=== PATIENT | female | born 1965 | race Caucasian/White ===

== ENCOUNTER 2020-07-04 06:28 | Day surgery (SDC) | payer OTHER ==
[2020-07-04] MEDS ORDERED: Sodium Chloride 0.9% 1,000 ML IV SCH (07:00)
[2020-07-04] MEDS ORDERED: Propofol 200 MG/20 ML SDV ONE (07:29)
[2020-07-04] MEDS ORDERED: Midazolam 1 MG/ML 2 ML SDV ONE (07:29)
--- NOTE | 2020-07-04 10:50 | OR ---
DATE OF PROCEDURE: 07/04/2020 SURGEON: Otilio Sarmiento MD PROCEDURE: Colonoscopy. FINDINGS: Diverticulosis. COMPLICATIONS: None. MASTER TAX ADVISOR: None. ANESTHESIA: MAC. PREOPERATIVE DIAGNOSIS: Screening colonoscopy. POSTOPERATIVE DIAGNOSIS: Screening colonoscopy. RISKS: Risks, benefits, alternatives, and limitations including, but not limited to infection, bleeding, and perforation along with false positives and false negatives were explained to the patient who wished to proceed. PROCEDURE IN DETAIL: The patient was placed in left lateral decubitus position. Digital rectal exam was performed without abnormality. Scope was introduced and advanced atraumatically to the ileocecal valve. A photo was taken of this. Scope was brought back to the ascending, transverse, descending colon, and retroflexed. No evidence of old or new blood. No masses. Diverticulosis was described as very mild, mostly limited to sigmoid colon. No abnormalities on retroflexion. The prep was marginally acceptable with approximately 85% of the luminal surface could be seen due to retained solid and liquid stool. The patient tolerated the procedure well. Greater than 8 minutes was spent removing the scope. Otilio Sarmiento MD /[id number]
== END 2020-07-04 09:30 | disposition home or self-care (01) ==
LOC: JP.SDS 06:28
PROVIDERS: ATTEND Surgery
DX: Z12.11 Encounter for screening for malignant neoplasm of colon (principal); K57.30 Diverticulosis of large intestine without perforation or abscess without bleeding; Z86.010 Personal history of colon polyps; Z88.0 Allergy status to penicillin; Z88.1 Allergy status to other antibiotic agents; Z88.4 Allergy status to anesthetic agent; Z88.8 Allergy status to other drugs, medicaments and biological substances
CPT/HCPCS: 45378; J2250; J2704; J7030

== ENCOUNTER 2023-03-04 09:56 | Inpatient (IN) | payer OTHER ==
[2023-03-04] MEDS ORDERED: Acetaminophen 325 MG Tab PO PRN (10:36)
[2023-03-04] MEDS ORDERED: Polyethylene Glycol 3350 Powder 17 GM Packet PO PRN (10:36)
[2023-03-04] MEDS ORDERED: Ondansetron 4 MG/2 ML SDV IV PRN (10:36)
[2023-03-04] MEDS ORDERED: Sodium Chloride 0.9% 10 ML Syringe FLUSH PRN ×2 (10:36→13:15)
[2023-03-04 11:13] LABS: BASOPHILS ABSOLUTE AUTO 0.03 K/uL (0.00-0.10); BASOPHILS PERCENT AUTO 0.4 % (0.1-1.3); EOSINOPHILS PERCENT AUTO 1.2 % (0.0-5.4); HEMATOCRIT 36.9 % (34.3-46.0); HEMOGLOBIN 12.2 g/dL (11.2-15.5); IMMATURE GRAN ABSOLUTE AUTO 0.13 K/uL (0.00-0.23); IMMATURE GRAN PERCENT AUTO 1.6 % (0.0-0.7); LYMPHOCYTES ABSOLUTE AUTO 2.47 K/uL (0.8-3.3); LYMPHOCYTES PERCENT AUTO 30.4 % (11.4-47.7); MEAN CORPUSCULAR HEMOGLOBIN 31.2 pg (31.6-35.5); MEAN CORPUSCULAR HGB CONC 33.1 g/dL (31.6-35.5); MEAN CORPUSCULAR VOLUME 94.4 fL (81.4-99.0); MONOCYTES ABSOLUTE AUTO 0.65 K/uL (0.20-0.90); NEUTROPHILS ABSOLUTE AUTO 4.74 K/uL (1.0-7.6); NEUTROPHILS PERCENT AUTO 58.4 % (40.0-78.1); PLATELET COUNT,PLT 335 K/uL (130-375); RED BLOOD CELL COUNT 3.91 M/uL (3.77-5.24); WHITE BLOOD CELL COUNT,WBC 8.1 K/uL (3.2-11.0)
[2023-03-04 11:14] LABS: BASE EXCESS ARTERIAL 1.5 mm/L; BICARBONATE,ARTERIAL 24.6 mmol/L (22.0-26.0); CARBOXYHEMOGLOBIN 2.6 % (0.0-1.6); METHEMOGLOBIN 0.5 %; PCO2 ARTERIAL 35.2 mmHg (35.0-42.0); TOTAL HEMOGLOBIN 12.3 g/dL (12.0-16.0)
[2023-03-04] MEDS: Sodium Chloride 0.9% 1,000 ML IV SCH (11:15)
[2023-03-04] MEDS: Doxycycline 100 MG in Sodium Chloride 0.9% 100 ML IV SCH ×2 (11:32→22:34)
[2023-03-04 11:36] LABS: ALBUMIN 2.2 g/dL (3.4-5.0); ALKALINE PHOSPHATASE 124 U/L (46-116); ASPARTATE AMNIOTRANSFERASE,AST 22 U/L (15-37); BILIRUBIN TOTAL 0.6 mg/dL (0.2-1.0); BLOOD UREA NITROGEN,BUN 15 mg/dL (7-18); C-REACTIVE PROTEIN 22.23 mg/dL (0.0-0.3); CALCIUM 8.9 mg/dL (8.5-10.1); CARBON DIOXIDE,CO2 29 mmol/L (21-32); CHLORIDE,CL 95 mmol/L (100-108); CREATININE 0.9 mg/dL (0.6-1.0); EST CRCL DRUG DOSING (CG) 65.45 mL/min; ESTIMATED GFR 74 mL/min (>60); GLUCOSE RANDOM 88 mg/dL (74-106); MAGNESIUM 1.5 mg/dL (1.8-2.4); POTASSIUM,K 3.7 mmol/L (3.6-5.2); PROTEIN TOTAL,TP 7.1 g/dL (6.4-8.2); SODIUM,NA 131 mmol/L (140-148)
[2023-03-04 11:45] LABS: A/G RATIO 0.5 (1.2-2.2); ALANINE AMINOTRANSFERASE,ALT 14 U/L (12-78); ANION GAP 10.7 mmol/L (5.0-14.0)
[2023-03-04] MEDS ORDERED: Non-Formulary Medication 1 Each (Magnesium Oxide [Magnesium] 400 MG Capsule) PO SCH (13:00)
[2023-03-04] MEDS: Meropenem 1 GM in Sodium Chloride 0.9% 100 ML IV SCH ×2 (13:05→19:42)
[2023-03-04] MEDS: Enoxaparin 40 MG/0.4 ML Syringe SUBCUT SCH (13:09)
[2023-03-04] MEDS ORDERED: Sodium Chloride 0.9% 75 ML IV ONE (13:15)
[2023-03-04] MEDS ORDERED: Iopamidol 755 Mg/ML 100 ML Bottle IV SCH (13:15)
[2023-03-04] MEDS: Acetylcysteine 20% 200 MG/ML 4 ML Nebulizer Soln SDV NEB SCH ×2 (13:22→20:42)
[2023-03-04] MEDS: Albuterol 0.083% 2.5 MG/3 ML Neb Soln NEB PRN (13:22)
[2023-03-04] MEDS: methylPREDNISolone Sodium Succinate 40 MG/1 ML SDV IVPUSH SCH ×2 (14:41→22:32)
[2023-03-04] MEDS: Magnesium Oxide 400 MG Tab PO SCH ×2 (14:41→20:28)
[2023-03-04] MEDS: Magnesium Sulfate/Water 2 GM in Premix Bag 1 BAG IV SCH ×2 (14:41→20:22)
[2023-03-04] MEDS: Pregabalin 100 MG Cap PO SCH (20:28)
[2023-03-04] MEDS: DULoxetine 20 MG Cap PO SCH (20:28)
[2023-03-05] MEDS: Sodium Chloride 0.9% 1,000 ML IV SCH ×2 (01:02→09:40)
[2023-03-05] MEDS: Meropenem 1 GM in Sodium Chloride 0.9% 100 ML IV SCH ×3 (03:34→19:53)
[2023-03-05] MEDS: methylPREDNISolone Sodium Succinate 40 MG/1 ML SDV IVPUSH SCH ×3 (05:30→21:51)
[2023-03-05 06:14] LABS: HEMATOCRIT 34.8 % (34.3-46.0); HEMOGLOBIN 11.6 g/dL (11.2-15.5); MEAN CORPUSCULAR HEMOGLOBIN 31.1 pg (31.6-35.5); MEAN CORPUSCULAR HGB CONC 33.3 g/dL (31.6-35.5); MEAN CORPUSCULAR VOLUME 93.3 fL (81.4-99.0); RED BLOOD CELL COUNT 3.73 M/uL (3.77-5.24); WHITE BLOOD CELL COUNT,WBC 7.6 K/uL (3.2-11.0)
[2023-03-05 06:29] LABS: CALCIUM 8.4 mg/dL (8.5-10.1); CREATININE 0.8 mg/dL (0.6-1.0); EST CRCL DRUG DOSING (CG) 73.63 mL/min; MAGNESIUM 2.2 mg/dL (1.8-2.4); POTASSIUM,K 3.9 mmol/L (3.6-5.2)
[2023-03-05 06:39] LABS: ANION GAP 10.9 mmol/L (5.0-14.0)
[2023-03-05] MEDS: Acetylcysteine 20% 200 MG/ML 4 ML Nebulizer Soln SDV NEB SCH ×3 (07:11→21:48)
[2023-03-05] MEDS: Albuterol 0.083% 2.5 MG/3 ML Neb Soln NEB PRN (07:11)
[2023-03-05] MEDS: Metoprolol Succinate 50 MG Tab.ER PO SCH (08:06)
[2023-03-05] MEDS: Losartan 25 MG Tab PO SCH (08:07)
[2023-03-05] MEDS: DULoxetine 20 MG Cap PO SCH ×2 (08:07→21:51)
[2023-03-05] MEDS: Estradiol 0.5 MG Tab PO SCH (08:07)
[2023-03-05] MEDS: Pregabalin 100 MG Cap PO SCH ×2 (08:11→21:51)
[2023-03-05] MEDS: Magnesium Oxide 400 MG Tab PO SCH ×2 (08:17→21:51)
[2023-03-05] MEDS ORDERED: Non-Formulary Medication 1 Each (Estradiol [Estrace] 1 MG Tablet) PO SCH (09:00)
[2023-03-05] MEDS: Doxycycline 100 MG in Sodium Chloride 0.9% 100 ML IV SCH ×2 (11:05→22:00)
[2023-03-05] MEDS: Enoxaparin 40 MG/0.4 ML Syringe SUBCUT SCH (12:58)
[2023-03-06] MEDS: Meropenem 1 GM in Sodium Chloride 0.9% 100 ML IV SCH ×3 (04:15→19:40)
[2023-03-06 04:44] LABS: HEMATOCRIT 33.6 % (34.3-46.0); HEMOGLOBIN 11.2 g/dL (11.2-15.5); MEAN CORPUSCULAR HEMOGLOBIN 31.4 pg (31.6-35.5); MEAN CORPUSCULAR HGB CONC 33.3 g/dL (31.6-35.5); MEAN CORPUSCULAR VOLUME 94.1 fL (81.4-99.0); RED BLOOD CELL COUNT 3.57 M/uL (3.77-5.24); WHITE BLOOD CELL COUNT,WBC 11.5 K/uL (3.2-11.0)
[2023-03-06 05:00] LABS: CALCIUM 8.8 mg/dL (8.5-10.1); CREATININE 0.7 mg/dL (0.6-1.0); EST CRCL DRUG DOSING (CG) 84.15 mL/min; POTASSIUM,K 4.1 mmol/L (3.6-5.2)
[2023-03-06 05:48] LABS: ANION GAP 9.1 mmol/L (5.0-14.0)
[2023-03-06] MEDS: Acetylcysteine 20% 200 MG/ML 4 ML Nebulizer Soln SDV NEB SCH ×3 (07:07→21:59)
[2023-03-06] MEDS: predniSONE 20 MG Tab PO SCH (08:48)
[2023-03-06] MEDS: Metoprolol Succinate 50 MG Tab.ER PO SCH (08:48)
[2023-03-06] MEDS: Magnesium Oxide 400 MG Tab PO SCH ×2 (08:48→21:59)
[2023-03-06] MEDS: DULoxetine 20 MG Cap PO SCH ×2 (08:48→21:58)
[2023-03-06] MEDS: Losartan 25 MG Tab PO SCH (08:49)
[2023-03-06] MEDS: Estradiol 0.5 MG Tab PO SCH (08:49)
[2023-03-06] MEDS: Pregabalin 100 MG Cap PO SCH (08:52)
[2023-03-06] MEDS: Doxycycline 100 MG in Sodium Chloride 0.9% 100 ML IV SCH (12:34)
[2023-03-06] MEDS: Enoxaparin 40 MG/0.4 ML Syringe SUBCUT SCH (12:38)
[2023-03-06] MEDS ORDERED: Pregabalin 100 MG Cap PO SCH (21:00)
[2023-03-06] MEDS: Pregabalin 75 MG Cap PO SCH (21:58)
[2023-03-06] MEDS ORDERED: Doxycycline 100 MG Cap PO SCH (22:00)
[2023-03-07] MEDS: Meropenem 1 GM in Sodium Chloride 0.9% 100 ML IV SCH (04:46)
[2023-03-07] MEDS: Acetylcysteine 20% 200 MG/ML 4 ML Nebulizer Soln SDV NEB SCH (07:04)
[2023-03-07] MEDS: Estradiol 0.5 MG Tab PO SCH (08:38)
[2023-03-07] MEDS: DULoxetine 20 MG Cap PO SCH (08:38)
[2023-03-07] MEDS: predniSONE 20 MG Tab PO SCH (08:38)
[2023-03-07] MEDS: Magnesium Oxide 400 MG Tab PO SCH (08:38)
[2023-03-07] MEDS: Metoprolol Succinate 50 MG Tab.ER PO SCH (08:39)
[2023-03-07] MEDS: Losartan 25 MG Tab PO SCH (08:39)
[2023-03-07] MEDS: Pregabalin 75 MG Cap PO SCH (08:43)
== END 2023-03-07 11:00 | disposition home or self-care (01) | DRG 193 ==
LOC: JP.MS 09:56
PROVIDERS: ADMIT Hospitalist; ATTEND Internal Medicine
DX: J18.9 Pneumonia, unspecified organism (principal); J96.01 Acute respiratory failure with hypoxia; J45.21 Mild intermittent asthma with (acute) exacerbation; Z88.1 Allergy status to other antibiotic agents; Z88.8 Allergy status to other drugs, medicaments and biological substances; Z86.010 Personal history of colon polyps; Z90.49 Acquired absence of other specified parts of digestive tract; Z90.710 Acquired absence of both cervix and uterus; Z98.1 Arthrodesis status; Z98.890 Other specified postprocedural states; Z11.52 Encounter for screening for COVID-19
CPT/HCPCS: 36415; 36600; 71275; 71275-26; 80048; 80053; 82803; 83735; 84145; 85025; 85027; 86140; 87040; 87070; 87205; 94640; A9270-GY; J1650; J2185; J2920; J3475; J3490; J7030; J7512; Q9967; U0002